=== PATIENT | female | born 1945 | race Caucasian/White ===

== ENCOUNTER 2019-06-28 10:55 | Day surgery (SDC) | payer MEDICARE, BC ==
[~2019-06-28 10:55] MED LIST: Lactated Ringers 1,000 ML IV SCH
[2019-06-28] MEDS ORDERED: Propofol 200 MG/20 ML SDV ONE (11:06)
--- NOTE | 2019-06-28 11:33 | PCM.PREANE ---
Preanesthetic Assessment - Anesthesia/Transfusion/Family Hx Anesthesia History: Prior Anesthesia Without Reaction Family History of Anesthesia Reaction: No Transfusion History: No Prior Transfusion(s) Intubation History: Unknown - Review of Systems General: No Symptoms Pulmonary: No Symptoms Cardiovascular: No Symptoms Gastrointestinal: Diarrhea (profuse) Neurological: No Symptoms Other: Reports: None - Physical Assessment Height: 5 ft 2 in Weight: 83.461 kg ASA Class: 2 Mental Status: Alert & Oriented x3 Airway Class: Mallampati = 2 Dentition: Reports: Normal Dentition Thyro-Mental Finger Breadths: 2 Mouth Opening Finger Breadths: 3 ROM/Head Extension: Limited/Partial Lungs: Clear to Auscultation, Normal Respiratory Effort Cardiovascular: Regular Rate, Regular Rhythm - Allergies Allergies/Adverse Reactions: Allergies Allergy/AdvReac Type Severity Reaction Status Date / Time No Known Allergies Allergy Verified 06/25/19 09:25 - Blood Blood Available: No - Anesthesia Plan Pre-Op Medication Ordered: None - Acknowledgements Anesthesia Type Planned: MAC Pt an Appropriate Candidate for the Planned Anesthesia: Yes Alternatives and Risks of Anesthesia Discussed w Pt/Guardian: Yes Pt/Guardian Understands and Agrees with Anesthesia Plan: Yes PreAnesthesia Questionnaire HEENT History: Reports: Other (See Below) Other HEENT History: wears glasses, has upper permanent dental bridge Cardiovascular History: Reports: Hypertension Respiratory History: Reports: None Gastrointestinal History: Reports: Diverticulosis, Other (See Below) Other Gastrointestinal History: occasional heartburn- takes TUMS, thinks she may have IBS Genitourinary History: Reports: None Musculoskeletal History: Reports: Arthritis (bilat. knees and left hip) Neurological History: Reports: None Psychiatric History: Reports: Anxiety Endocrine/Metabolic History: Reports: Hypothyroidism, Obesity/BMI 30+ Hematologic History: Reports: None Immunologic History: Reports: None Oncologic (Cancer) History: Reports: None Dermatologic History: Reports: None - Past Surgical History GI Surgical History: Reports: Appendectomy, Cholecystectomy, Colonoscopy (11 years ago) - SUBSTANCE USE Smoking Status *Q: Never Smoker Recreational Drug Use History: No - HOME MEDS Home Medications: Home Meds Aspirin [[place] Aspirin EC] 81 mg PO DAILY 01/07/16 [History] LORazepam 0.5 mg PO ASDIRECTED PRN 01/07/16 [History] Levothyroxine Sodium [Synthroid] 112 mcg PO DAILY 01/07/16 [History] Triamterene/Hydrochlorothiazid [Triamterene-HCTZ 37.5-25 MG] 1 tab PO DAILY 01/17 [History] Meloxicam 7.5 mg PO DAILY 06/25/19 [History] - CURRENT (IN HOUSE) MEDS Current Meds: Current Medications Lactated Ringer's (Ringers, Lactated) 1,000 mls @ 125 mls/hr IV ASDIRECTED CHRIS Discontinued Medications Propofol (Diprivan 20 Ml) Confirm Administered Dose 400 mg .ROUTE .STK-MED ONE Stop: 06/28/19 11:07
[2019-06-28] MEDS ORDERED: Lactated Ringers 1,000 ML IV SCH (12:15)
--- NOTE | 2019-06-28 12:15 | PCM.OPNOTE ---
- General Post-Op/Procedure Note Date of Surgery/Procedure: 06/28/19 Operative Procedure(s): Colonoscopy with cold cecal biopsy Pre Op Diagnosis: Change in bowel habits. Family history of colon cancer. Post-Op Diagnosis: Nonspecific colitis. Sigmoid diverticulosis. Anesthesia Technique: MAC (ASA II) Primary Surgeon: Bradly Schulz Condition: Good Free Text/Narrative:: DICTATION [id number] CPT CODE 03400
--- NOTE | 2019-06-28 12:26 | PCM.POSTAN ---
POST ANESTHESIA ASSESSMENT - MENTAL STATUS Mental Status: Alert, Oriented - VITAL SIGNS Vital Signs: Last Vital Signs Temp 36.5 C 06/28/19 11:33 Pulse 70 06/28/19 12:21 Resp 21 H 06/28/19 12:21 BP 114/67 06/28/19 12:21 Pulse Ox 96 06/28/19 12:21 - RESPIRATORY Respiratory Status: Respiratory Rate WNL, Airway Patent, O2 Saturation Stable - CARDIOVASCULAR CV Status: Pulse Rate WNL, Blood Pressure Stable - GASTROINTESTINAL GI Status: No Symptoms - PAIN Pain Score: 0 - POST OP HYDRATION Hydration Status: Adequate & Stable - OBSERVATIONS Free Text/Narrative:: no anesthesia problems
--- NOTE | 2019-06-28 13:33 | PCM48HPAN ---
Post Anesthesia Note - EVALUATION WITHIN 48HRS OF ANESTHETIC Vital Signs in Normal Range: Yes Patient Participated in Evaluation: Yes Respiratory Function Stable: Yes Airway Patent: Yes Cardiovascular Function Stable: Yes Hydration Status Stable: Yes Pain Control Satisfactory: Yes Nausea and Vomiting Control Satisfactory: Yes Mental Status Recovered: Yes Vital Signs: Last Vital Signs Temp 36.5 C 06/28/19 11:33 Pulse 70 06/28/19 12:21 Resp 21 H 06/28/19 12:21 BP 114/67 06/28/19 12:21 Pulse Ox 96 06/28/19 12:21 - COMMENTS/OBSERVATIONS Free Text/Narrative:: no anesthesia problems
[2019-06-28 13:48] VITALS: BP 117/73; PULSE 72
--- NOTE | 2019-06-28 17:02 | OR ---
SURGEON: Bradly Schulz M.D. DATE OF PROCEDURE: 06/28/2019 OPERATION PERFORMED: Colonoscopy with cecal biopsy. ANESTHESIA: MAC. ASA CLASSIFICATION: II PREOPERATIVE DIAGNOSES: 1. Change in bowel habits. 2. Family history of colon cancer. POSTOPERATIVE DIAGNOSES: 1. Nonspecific colitis. 2. Sigmoid diverticulosis. DESCRIPTION OF PROCEDURE: The patient was taken to the endoscopy room and positioned on the endoscopy table in the left lateral decubitus position. Time-out was called for appropriate identification of the patient and procedure. Monitored anesthesia care was provided. The colonoscope was inserted into the rectum and advanced with moderate difficulty to the cecum. The colonoscope was retroflexed to visualize the ascending colon from below, then straightened and slowly withdrawn. There were some mild inflammatory changes in the cecum and biopsies of this area were obtained. No acute ulcerations or obvious inflammatory masses were noted. The colonoscope was then, after being retroflexed, straightened and slowly withdrawn. Cecum, ascending colon, hepatic flexure, transverse colon, splenic flexure, and descending colon showed no tumors, polyps, diverticula, or angiodysplastic changes. Sigmoid colon demonstrates moderate diverticular disease. No stricture, spasm, or bleeding was noted. The colonoscope was withdrawn to the rectum and retroflexed to visualize the anal orifice from above. Again, no tumors or polyps were seen, and there were no acute hemorrhoidal changes. The colonoscope was then straightened, the rectum aspirated, and the colonoscope removed. The patient tolerated the procedure well and was taken to recovery room in stable condition. DESTINEY / WILMAN /[id number]
== END 2019-06-28 13:00 | disposition home or self-care (01) ==
LOC: MW.SDS 10:55
PROVIDERS: ATTEND Surgery
DX: K57.30 Diverticulosis of large intestine without perforation or abscess without bleeding (principal); K63.89 Other specified diseases of intestine; R19.4 Change in bowel habit; I10 Essential (primary) hypertension; E03.9 Hypothyroidism, unspecified; F41.9 Anxiety disorder, unspecified; M17.0 Bilateral primary osteoarthritis of knee; M16.12 Unilateral primary osteoarthritis, left hip; Z80.0 Family history of malignant neoplasm of digestive organs; Z79.82 Long term (current) use of aspirin; Z79.1 Long term (current) use of non-steroidal anti-inflammatories (NSAID); Z79.899 Other long term (current) drug therapy
CPT/HCPCS: 45380; J2704; J7120

== ENCOUNTER 2020-11-03 20:28 | Emergency (ER) | payer MEDICARE, BC ==
[2020-11-03] MEDS ORDERED: Lidocaine 5% 700 MG Patch TRDERM ONE (21:23)
--- NOTE | 2020-11-03 21:50 | CR ---
Indication: Right-sided chest pain and shortness of breath Technique: Chest 1 view Comparison: None Findings/Impression: Cardiovascular and mediastinum: Normal heart size with mild aortic tortuosity. Lungs and pleural space: Lungs are clear. No sign of infiltrate or mass. No sign of pleural effusion. No pneumothorax. Bones and soft tissues: No acute findings. Dictated by Juan M Blue MD @ Nov 03 2020 9:47PM Signed by Dr. Juan M Blue @ Nov 03 2020 9:48PM
[2020-11-03 22:07] LABS: CARBON DIOXIDE,CO2 26.2 mmol/L (21.0-32.0); POTASSIUM,K 3.1 mmol/L (3.5-5.1)
[2020-11-03] MEDS ORDERED: Potassium Chloride 10% 20 MEQ/15 ML Soln 30 ML UD Cup PO ONE (22:32)
[2020-11-03] MEDS ORDERED: Iopamidol 755 MG/ML 500 ML Multipack Bottle IVPUSH STA (23:11)
--- NOTE | 2020-11-03 23:37 | CT ---
INDICATION: Right-sided rib pain starting after physical therapy. Status post lumbar spine surgery. Elevated D-dimer. COMPARISON: Chest radiograph from today TECHNIQUE: CT examination of the chest was performed with the uneventful intravenous administration of 100 cc of Isovue 370 while 1 and 1.5 mm thick axial sections were obtained through the pulmonary arteries. Please note that all CT scans at this facility use dose modulation, iterative reconstruction, and/or weight-based dosing when appropriate to reduce radiation dose to as low as reasonably achievable. FINDINGS: : There is no sign of pulmonary embolism, with normal enhancement and branching of the pulmonary arteries. There is moderate right and mild left diaphragmatic eventration. There is mild patchy density in the dependent portion of both lower lobes, right greater than left, probably atelectasis. There is no sign of mediastinal or hilar mass or adenopathy. The heart is normal in appearance for the patient`s age, as are the aorta and other ascending great vessels. There is no sign of supraclavicular or axillary mass or adenopathy. The visualized superior liver has a rounded low-density region in the posterior dome of the right lobe measuring 2.0 x 1.5 centimeters, in segment 7. This is probably a cyst or hemangioma. The rest of the visualized superior liver is normal in appearance. The visualized superior spleen, pancreas, kidneys, and adrenals are normal in appearance. Clips are seen in the gall bladder fossa from cholecystectomy. The osseous structures are normal in appearance for the patient`s age. IMPRESSION: No sign of pulmonary embolism. Mild dependent atelectasis in the posterior lung bases, right greater than left, associated with eventration of both hemidiaphragms, right greater than left. Please note that all CT scans at this facility use dose modulation, iterative reconstruction, and/or weight-based dosing when appropriate to reduce radiation dose to as low as reasonably achievable. Dictated by Abdulaziz Ramírez MD @ Nov 03 2020 11:30PM Signed by Dr. Abdulaziz Ramírez @ Nov 03 2020 11:36PM
[2020-11-04] MEDS ORDERED: Ketorolac 15 MG/ML SDV IM ONE (00:15)
--- NOTE | 2020-11-04 00:19 | EDM.PDOC ---
ED HPI GENERAL MEDICAL PROBLEM - General Chief Complaint: General Stated Complaint: PAIN AND DISCOMFORT Time Seen by Provider: 11/03/20 20:33 - History of Present Illness INITIAL COMMENTS - FREE TEXT/NARRATIVE: CHIEF COMPLAINT(S): Right-sided chest wall pain HISTORY OF PRESENT ILLNESS: This is a 75-year-old woman with a past medical history of hypertension, hypothyroidism and recent back surgery on August 20, 2020 who comes to the emergency department with a chief complaint of right-sided chest wall pain. The patient states that after surgery she had been doing fine. She states that on October 13, 2020 they recommended she do physical therapy. She states that she has gone approximately 5 times and that physical therapy is wearing her out. She states that after starting physical therapy she started to experience increased pain on the right side of her chest wall which she describes as a spasm. She describes it as intermittent. She states that it is worse when she moves her right arm. She rates the pain as 5 out of 10. She denies any shortness of breath but states that it does hurt when she takes a deep breath. She denies any diaphoresis, nausea or vomiting. She denies any history of CAD or CHF. She denies any recent travel and denies any prior history of DVT or PE. She states that the pain is also in her right shoulder. She states that she does not have decreased range of motion of her right shoulder. She denies any numbness, tingling, or weakness. She states that she was prescribed ibuprofen and Flexeril which she tried this morning and it did make it feel better however the pain has improved. She states that she again tried ibuprofen and a heating pad which seemed to improve the pain however it has continued to linger. She denies any other symptoms. REVIEW OF SYSTEMS: Constitutional: Denies fever, chills. Eyes: Denies eye pain Ears, Nose, Mouth, & Throat: Denies earache Cardiovascular: Positive for pleuritic chest pain denies chest pain Respiratory: Denies shortness of breath Gastrointestinal: Denies Nausea, vomiting, diarrhea, hematochezia. Genitourinary: Denies hematuria Skin:Denies a rash MSK: Positive for right-sided chest wall pain and right shoulder pain Neurological: Denies blurred vision Psychiatric: Denies depression PAST MEDICAL HISTORY: As per history of present illness and as reviewed below otherwise noncontributory. SURGICAL HISTORY: As per history of present illness and as reviewed below otherwise noncontributory. SOCIAL HISTORY: As per history of present illness and as reviewed below otherwise noncontributory. FAMILY HISTORY: As per history of present illness and as reviewed below otherwise noncontributory. EXAMINATION OF ORGAN SYSTEMS/BODY AREAS: Constitutional: Blood pressure was 157/80, heart rate 105, respiratory rate 18 with an oxygen saturation of 95% on room air. Temperature 37.0 General: Elderly woman who appears to be in no acute distress Psychiatric: Appropriate mood and affect. Eyes: No scleral icterus or conjunctival erythema ENMT: Moist mucous membranes. No pharyngeal erythema Cardiovascular: Tachycardic but regular. No gallops, murmurs, or rubs. Bilateral upper extremity pulses symmetric and intact. No peripheral edema. No JVD. Respiratory: Lungs clear to auscultation bilaterally. No wheezes, rales, or rhonchi. Gastrointestinal: Soft, non-tender, non-distended. Normoactive bowel sounds Genitourinary: No suprapubic tenderness Musculoskeletal: The patient has full range of motion of her right shoulder, right elbow, right wrist, and right hand. Sheriff Sergeant strength was equal bilaterally. There was mild tenderness to palpation along the anterior shoulder but there was more severe muscle tenderness and spasm when palpating the right chest wall. There was no paracervical tenderness no midline cervical, thoracic, or lumbar tenderness. Skin: No lesions or abrasions. Neurological: Alert, GCS 15 strength and sensation grossly intact in upper and lower extremities bilaterally. MEDICAL DECISION MAKING AND COURSE IN THE ED WITH INTERPRETATION/REVIEW OF DIAGNOSTIC STUDIES: This is a 75-year-old woman with a past medical history of hypertension and a spinal fusion in August who comes to the emergency department with acute right-sided chest wall pain which is pleuritic and spasmodic who is mildly tachycardic. At this time I do believe this is secondary to musculoskeletal spasm given the patient's recent start of physical therapy. However given the patient's tachycardia differential does include pulmonary embolism. Will obtain CBC, BMP, D-dimer to evaluate. Will obtain a chest x-ray. At this time for pain relief we will attempt a lidocaine patch. We will reevaluate. I do not believe any other labs or imaging are indicated. Laboratory: CBC reveals a mild leukocytosis 11.18 which is just above normal therefore it is likely. Normal indices. D-dimer is elevated at 1.45. BMP reveals hypokalemia at 3.1, hyperglycemia at 176 and CPK of 72. Magnesium is normal. The radiological images were viewed by myself along with reading the report from the radiologist. Chest x-ray does not reveal any acute cardiopulmonary process. Given the elevated D-dimer I did discuss with the patient that I would like to obtain a CT angiogram. She was amenable to this plan. At this time her pain had continued. We will provide the patient with Toradol IM for pain relief. The radiological images were viewed by myself along with reading the report from the radiologist. CT angiogram of the chest does not reveal any evidence of acute pulmonary embolism. There is mild dependent atelectasis in the posterior lung bases right greater than left. At this time the patient's vitals resolved to normal after Toradol administration. I did discuss with her that I do believe this is secondary to musculoskeletal spasm. I recommend the use of Tylenol and Motrin for the next 48 hours and then as needed after that. Also discussed the use of Voltaren and lidocaine cream. She is to follow-up with primary care physician for further treatment. I discussed the use of incentive spirometer. I discussed that if she had continued right-sided chest pain, shortness of breath, or fever she need to return to the emergency department. She was amenable to discharge at this time and had no further questions. DISPOSITION: The patient was discharged home in stable condition. The patient will follow up with primary care physician within 2 to 3 days CONDITION: Fair PROCEDURES: None FINAL IMPRESSION(S)/DIAGNOSES: 1. Acute right sided chest pain likely musculoskeletal secondary to overuse from physical therapy 2. Acute tachycardia likely secondary to pain Ashwin Mcfarlane M.D. nect, right rib,back Pain Score (Numeric/FACES): 10 - Related Data Allergies Allergy/AdvReac Type Severity Reaction Status Date / Time No Known Allergies Allergy Verified 11/03/20 20:48 Home Meds: Home Meds Aspirin [[place] Aspirin EC] 81 mg PO DAILY 01/07/16 [History] LORazepam 0.5 mg PO ASDIRECTED PRN 01/07/16 [History] Levothyroxine Sodium [Synthroid] 125 mcg PO DAILY 01/07/16 [History] Triamterene/Hydrochlorothiazid [Triamterene-HCTZ 37.5-25 MG] 1 tab PO DAILY 01/07/16 [History] Biotin 5,000 mcg PO DAILY 11/03/20 [History] Past Medical History HEENT History: Reports: Other (See Below) Other HEENT History: wears glasses, has upper permanent dental bridge Cardiovascular History: Reports: Hypertension Respiratory History: Reports: None Gastrointestinal History: Reports: Diverticulosis, Other (See Below) Other Gastrointestinal History: occasional heartburn- takes TUMS, thinks she may have IBS Genitourinary History: Reports: None PRINCIPAL SYSTEM SOFTWARE ENGINEER History: Reports: None Musculoskeletal History: Reports: Arthritis Neurological History: Reports: None Psychiatric History: Reports: Anxiety Endocrine/Metabolic History: Reports: Hypothyroidism, Obesity/BMI 30+ Hematologic History: Reports: None Immunologic History: Reports: None Oncologic (Cancer) History: Reports: None Dermatologic History: Reports: None - Infectious Disease History Infectious Disease History: Reports: None - Past Surgical History Head Surgeries/Procedures: Reports: None GI Surgical History: Reports: Appendectomy, Cholecystectomy, Colonoscopy Musculoskeletal Surgical History: Reports: Other (See Below) Other Musculoskeletal Surgeries/Procedures:: Back Surgery Social & Family History - Caffeine Use Caffeine Use: Reports: Coffee - Recreational Drug Use Recreational Drug Use: No ED ROS GENERAL - Review of Systems Review Of Systems: See Below ED EXAM, GENERAL - Physical Exam Exam: See Below Course - Vital Signs Last Recorded V/S: Last Vital Signs Temp 36.6 C 11/04/20 00:45 Pulse 90 11/04/20 00:45 Resp 18 11/04/20 00:45 BP 135/69 11/04/20 00:45 Pulse Ox 97 11/04/20 00:45 - Orders/Labs/Meds Labs: Laboratory Tests 11/03/20 11/03/20 11/03/20 Range/Units 21:35 21:35 21:35 WBC 11.18 H (4.0-11.0) K/uL RBC 4.82 (4.30-5.90) M/uL Hgb 13.5 (12.0-16.0) g/dL Hct 40.8 (36.0-46.0) % MCV 84.6 (80.0-98.0) fL MCH 28.0 (27.0-32.0) pg MCHC 33.1 (31.0-37.0) g/dL RDW Std Deviation 45.0 (28.0-62.0) fl RDW Coeff of Stoney 15 (11.0-15.0) % Plt Count 339 (150-400) K/uL MPV 10.10 (7.40-12.00) fL Neut % (Auto) 75.7 (48.0-80.0) % Lymph % (Auto) 13.7 L (16.0-40.0) % [place] % (Auto) 9.0 (0.0-15.0) % Eos % (Auto) 1.3 (0.0-7.0) % Baso % (Auto) 0.3 (0.0-1.5) % Neut # (Auto) 8.5 H (1.4-5.7) K/uL Lymph # (Auto) 1.5 (0.6-2.4) K/uL [place] # (Auto) 1.0 H (0.0-0.8) K/uL Eos # (Auto) 0.1 (0.0-0.7) K/uL Baso # (Auto) 0.0 (0.0-0.1) K/uL Nucleated RBC % 0.0 /100WBC Nucleated RBCs # 0 K/uL D-Dimer, Quantitative 1.45 H (0.0-0.50) mg/L FEU Sodium 137 (136-145) mmol/L Potassium 3.1 L (3.5-5.1) mmol/L Chloride 100 (98-107) mmol/L Carbon Dioxide 26.2 (21.0-32.0) mmol/L BUN 19 H (7.0-18.0) mg/dL Creatinine 1.0 (0.6-1.0) mg/dL Est Cr Clr Drug Dosing 37.26 mL/min Estimated GFR (MDRD) 53.8 ml/min Glucose 176 H (74-106) mg/dL Calcium 9.4 (8.5-10.1) mg/dL Magnesium 1.8 (1.8-2.4) mg/dL Creatine Kinase 72 (26-308) U/L Meds: Medications Discontinued Medications Generic Name Dose Route Start Last Admin Trade Name Freq PRN Reason Stop Dose Admin Iopamidol 100 ml 11/03/20 23:11 11/03/20 23:12 Isovue Multipack-370 (76%) IVPUSH 11/03/20 23:12 100 ml ONETIME STA Administration Ketorolac Tromethamine 15 mg 11/04/20 00:15 11/04/20 00:33 Toradol IM 11/04/20 00:16 Not Given ONETIME ONE Ketorolac Tromethamine 15 mg 11/04/20 00:28 11/04/20 00:30 Toradol IVPUSH 11/04/20 00:29 15 mg NOW STA Administration Lidocaine 700 mg 11/03/20 21:23 11/03/20 21:38 Lidoderm 5% TRDERM 11/03/20 21:24 700 mg ONETIME ONE Administration Potassium Chloride 40 meq 11/03/20 22:32 11/03/20 22:37 Potassium Chloride PO 11/03/20 22:33 40 meq ONETIME ONE Administration Departure - Departure Time of Disposition: 00:16 Disposition: Home, Self-Care 01 Condition: Fair Clinical Impression: Muscle spasm - Discharge Information *PRESCRIPTION DRUG MONITORING PROGRAM REVIEWED*: No *COPY OF PRESCRIPTION DRUG MONITORING REPORT IN PATIENT IRVIN: No Instructions: Muscle Cramps and Spasms, [id number] Referrals: Trupti Larsen [employer]ER [employer]AMP [employer]SEMBLER [Primary Care Provider] - Forms: ED Department Discharge Additional Instructions: You evaluate today on an emergent basis. At this time your imaging and work-up was negative. I do believe the pain you are experiencing on the right side of your chest and upper back is likely secondary to muscle spasm and strain. I recommend the following pain regimen below. In addition we will provide you with an incentive spirometer and I want you to use this throughout the day. I would like you to follow-up with your primary care physician this week for further management. If you are still having right-sided chest wall pain I did provide a contact for pain clinic. If you have any worsening symptoms please return to the emergency department. Please use: Tylenol 500-1000mg every 6 hours (DO NOT TAKE MORE THAN 4000mg in 1 day) Ibuprofen 400mg every 6 hours (Take with food as it can cause ulcers, GI upset) Example schedule: 8:00 AM (Tylenol 500-1000mg) 11:00 AM (Ibuprofen 400mg) 2:00 PM (Tylenol 500-1000mg) 5:00 PM (Ibuprofen 400mg) In addition to Tylenol and Motrin you may use over the counter creams such as Voltaren Cream or Lidocaine Cream (Lidoderm) as needed 4 times a day for symptomatic relief. Ice the area 20 minutes 4 times per day and alternate with heat during the same period. [facility] - Primary Care [address] [place] [address] [facility] [address] [place] [address] [facility] - Pain Management [address] [place] [address] The patient is informed of any results of their evaluation and diagnostic workup and all questions are answered. They are given discharge instructions and return precautions. The patient is stable for discharge. The patient states they understand and agree with the plan and that they will return if their symptoms get worse or if they have any new concerns. The following information is given to patients seen in the emergency department who are being discharged to home. This information is to outline your options for follow-up care. We provide all patients seen in our emergency department with a follow-up referral. The need for follow-up, as well as the timing and circumstances, are variable depending upon the specifics of your emergency department visit. If you don't have a primary care physician on staff, we will provide you with a referral. We always advise you to contact your personal physician following an emergency department visit to inform them of the circumstance of the visit and for follow-up with them and/or the need for any referrals to a consulting specialist. The emergency department will also refer you to a specialist when appropriate. This referral assures that you have the opportunity for follow-up care with a specialist. All of these measure are taken in an effort to provide you with optimal care, which includes your follow-up. Under all circumstances we always encourage you to contact your private physician who remains a resource for coordinating your care. When calling for follow-up care, please make the office aware that this follow-up is from your recent emergency room visit. If for any reason you are refused follow-up, please contact the [facility] Emergency Department at and asked to speak to the emergency department charge nurse. Sepsis Event Note (ED) - Evaluation Sepsis Screening Result: No Definite Risk
[2020-11-04] MEDS ORDERED: Ketorolac 15 MG/ML SDV IVPUSH STA (00:28)
[2020-11-04 01:12] VITALS: BP 135/69; PULSE 90
== END 2020-11-04 00:45 | disposition home or self-care (01) ==
LOC: MW.ED 20:28
DX: M62.838 Other muscle spasm (principal); R00.0 Tachycardia, unspecified; I10 Essential (primary) hypertension; E03.9 Hypothyroidism, unspecified; M19.90 Unspecified osteoarthritis, unspecified site; E66.9 Obesity, unspecified; Z68.32 Body mass index [BMI] 32.0-32.9, adult; Z79.82 Long term (current) use of aspirin; Z79.899 Other long term (current) drug therapy
CPT/HCPCS: 36415; 71045; 71275; 80048; 82550; 83735; 85025; 85379; 96374; 99285; A9270; J1885; Q9967; 99283

== ENCOUNTER 2023-04-08 08:42 | Emergency (ER) | payer MEDICARE, BC ==
[2023-04-08 09:17] VITALS: BP 177/84; PULSE 82
== END 2023-04-08 09:16 | disposition home or self-care (01) ==
LOC: MW.ED 08:42
DX: K08.89 Other specified disorders of teeth and supporting structures (principal); I10 Essential (primary) hypertension; E03.9 Hypothyroidism, unspecified; E66.9 Obesity, unspecified; Z68.32 Body mass index [BMI] 32.0-32.9, adult; Z79.82 Long term (current) use of aspirin; Z79.899 Other long term (current) drug therapy; Z88.1 Allergy status to other antibiotic agents
CPT/HCPCS: 99282; 99283